=== PATIENT | male | born 1970 | race Caucasian/White ===

== ENCOUNTER 2016-06-04 20:33 | Emergency (ER) | payer MEDICAID ==
--- NOTE | 2016-06-04 20:46 | EDPHY ---
H & P Time Seen by Provider: 06/04/16 20:36 HPI/ROS: CHIEF COMPLAINT: Suspected alcohol iIntoxicationn HISTORY OF PRESENT ILLNESS: 46-year-old homeless male arrives via ambulance on an [facility] hold after he was found sleeping under a darling.. No reports of trauma. No fall. No visible signs of trauma. Admits to alcohol use.Denies suicidal or homicidal ideation . Denies self-injury REVIEW OF SYSTEMS: A ten point review of systems was performed and is negative with the exception of the items mentioned in the HPI PAST MEDICAL & SURGICAL HISTORY: Alcoholism SOCIAL HISTORY: homeless. Positive alcohol use PHYSICAL EXAM (Prior to examination, patient consented to physical exam, hands were washed and my usual and customary physical exam procedures followed) 1) GENERAL: Poorly kept, alert oriented. Appears to be in no acute distress. 2) HEAD: Normocephalic, atraumatic 3) HEENT: Pupils equal, round, reactive to light bilaterally. Sclera anicteric. no raccoon eyes. No Nunez sign 4) NECK: Full range of motion, no meningeal signs. 5) LUNGS: Clear auscultation bilaterally, no wheezes, no rhonchi, no retractions. 6) HEART: Regular rate and rhythm, no murmur, no heave, no gallop. 7) ABDOMEN: No guarding, no rebound, no focal tenderness, 8) MUSCULOSKELETAL: No peripheral edema or discoloration. 9) BACK: No CVA tenderness,. 10) SKIN: No rash, no petechiae. 11) Psychiatric: Patient is oriented X 3, there is no agitation. DIFFERENTIAL DIAGNOSIS: In no particular orderincluding but not limited to hypoglycemia, infectious process, electrolyte abnormality, head injury and intoxicants. Smoking Status: Current every day smoker Constitutional: Initial Vital Signs Temperature (C) 37.2 C 06/04/16 21:15 Heart Rate 119 H 06/04/16 21:15 Respiratory Rate 14 06/04/16 21:15 Blood Pressure 130/101 H 06/04/16 21:15 O2 Sat (%) 95 06/04/16 21:15 O2 Delivery Mode Room Air Allergies/Adverse Reactions: ciprofloxacin [From Cipro] Allergy (Verified 09/28/11 19:11) ciprofloxacin HCl [From Cipro] Allergy (Verified 09/28/11 19:11) Home Medications: Medication Instructions Recorded NO HOME MEDS 07/26/10 chlordiazePOXIDE [Librium 25 mg 25 mg PO TID #15 cap 01/17/16 (*)] MDM/Departure - MDM Medications Given: Discontinued Medications Chlordiazepoxide (Librium 25 Mg Prepack#6) 1 btl TAKEHOME EDNOW ONE Stop: 06/04/16 22:39 Last Admin: 06/04/16 22:42 Dose: 1 btl ED Course/Re-evaluation: 8:50 p.m.: Breathalyzer alcohol 335 10:30 p.m.: At this time he is observed ambulating with stable steady gait, clear speech pattern, ambulating without assistance, alert oriented person place time events. [facility] with [facility]. - Depart Disposition: Home, Routine, Self-Care Clinical Impression: Alcoholic intoxication Qualifiers: Complication of substance-induced condition: uncomplicated Qualified Code(s): F10.120 - Alcohol abuse with intoxication, uncomplicated Condition: Good Instructions: Alcohol Intoxication (ED) Referrals: [facility] Hours [Outside] - 1 day without fail
[2016-06-04 22:05] VITALS: TEMP 97.9
[2016-06-04] MEDS ORDERED: CHLORDIAZEPOXIDE 25MG PREPK#6 BTL TAKEHOME ONE (22:38)
[2016-06-04 22:43] VITALS: BP 133/74; PULSE 88; RESP 16; O2SAT 92
== END 2016-06-04 22:43 | disposition home or self-care (01) ==
LOC: EDUNIT#
DX: F10.120 Alcohol abuse with intoxication, uncomplicated (principal); F17.200 Nicotine dependence, unspecified, uncomplicated

== ENCOUNTER 2017-02-23 12:54 | Emergency (ER) | payer MEDICAID ==
[2017-02-23] MEDS ORDERED: LORazepam 2 MG/ML INJ IVP ONE (13:16)
[2017-02-23] MEDS ORDERED: NS 1,000 ML IV ONE (13:17)
[2017-02-23] MEDS ORDERED: chlordiazePOXIDE 25 MG CAP PO ONE ×2 (13:17→14:56)
[2017-02-23 13:20] VITALS: RESP 16; TEMP 98.2
--- NOTE | 2017-02-23 13:27 | EDPHY ---
H & P Stated Complaint: BIBA for sz at the [facility] today. brought to [facility] last night, found dk on street Time Seen by Provider: 02/23/17 13:24 HPI/ROS: HPI: This is a 47-year-old male who presents with Chief Complaint: BIBA for sz at the [facility] today. brought to [facility] last night, found dk on street Location: Seizure Quality: Today Duration: Last a few seconds Signs and Symptoms: No LOC, no neck pain, no fever, no nausea, no vomiting, no shortness of breath, no abdominal pain, no incontinence Timing: Sudden, resolved Severity: Moderate Context: Patient reports that he drank a 5th of vodka last night. He was picked up by [facility] in taken to the [facility]. This afternoon prior to arrival he had a few seconds seizure per staff and was brought in by ambulance to the ER for further evaluation. Patient reports that he has had withdrawal seizures in the past but has never been hospitalized for them. He is homeless. He drinks daily. Denies recreational drug use. Denies SI, HI, hallucinations, paranoia. No prior history of psychiatric diagnoses. He denies tremors, nausea, agitation at this time. Modifying Factors: None Comment: ROS: see HPI Constitutional: No fever, no chills, no weight loss Eyes: No blurred vision Respiratory: No shortness of breath, no cough Cardiovascular: No chest pain Gastrointestinal: No nausea, no vomiting, no diarrhea Genitourinary: No dysuria Extremities: No myalgias Neurologic: No weakness, no numbness Skin: No rashes Hematologic: No bruising, no bleeding MEDICAL/SURGICAL/SOCIAL HISTORY: Medical history: Generally healthy. Does not take any regular medications. Surgical history: Denies Social history: Homeless CONSTITUTIONAL: Untidy adult white male, nontoxic in appearance, no obvious distress HEENT: Atraumatic and normocephalic, PERRL, EOMI. Tympanic membranes clear. Oropharynx clear, no exudate and moist pink mucosa. Airway patent. No lymphadenopathy. No meningismus. Cardiovascular: Normal S1/S2, regular rate, regular rhythm, without murmur rub or gallop. PULMONARY/CHEST: Symmetrical and nontender. Clear to auscultation bilaterally. Good air movement. No accessory muscle usage. ABDOMEN: Soft, nondistended, nontender, no rebound, no guarding, no peritoneal signs, no masses or organomegaly. No CVAT. EXTREMITIES: 2/2 pulses, strength 5/5, no deformities, no clubbing, no cyanosis or edema. NEUROLOGICAL: no focal neuro deficits. GCS 15. No seizure activity. No lethargy awake and alert. SKIN: Warm and dry, no erythema. no rash. Good capillary refill. Source: Patient, RN/MD Exam Limitations: No limitations - Personal History Current Tetanus/Diphtheria Vaccine: No Current Tetanus Diphtheria and Acellular Pertussis (TDAP): No Tetanus Vaccine Date: 2006 - Medical/Surgical History Hx Asthma: No Hx Chronic Respiratory Disease: No Hx Diabetes: No Hx Cardiac Disease: No Hx Renal Disease: No Hx Cirrhosis: No Hx Alcoholism: Yes Hx HIV/AIDS: No Hx Splenectomy or Spleen Trauma: No Other PMH: Neuropathy, alcoholism. - Social History Smoking Status: Former smoker Constitutional: Initial Vital Signs Temperature (C) 36.8 C 02/23/17 13:17 Heart Rate 93 02/23/17 13:17 Respiratory Rate 16 02/23/17 13:17 Blood Pressure 116/64 02/23/17 13:17 O2 Sat (%) 95 02/23/17 13:17 O2 Delivery Mode Room Air Allergies/Adverse Reactions: ciprofloxacin [From Cipro] Allergy (Verified 02/23/17 13:13) ciprofloxacin HCl [From Cipro] Allergy (Verified 02/23/17 13:13) Home Medications: Medication Instructions Recorded NO HOME MEDS 07/26/10 Medical Decision Making ED Course/Re-evaluation: Labs, IV fluids, IV and oral medications given Patient is not postictal upon arrival to the ER. Question seizure activity. CIWA upon arrival equals 2 Given IV Ativan 1 mg and p.o. Librium 25 mg Patient knows that he has a drinking problem but does not want to go to the [facility] or to quit alcohol at this time. 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 Potassium 3.3, magnesium 1.5; given p.o. potassium supplementation 40 mEq and p.o. magnesium supplementation 800 mg Ethanol level 37 Patient monitor for 3 hours in the ER; discharge home. Differential Diagnosis: Altered mental status including but not limited to hypoglycemia, infectious process, electrolyte abnormality, head injury and intoxicants. - Data Points Laboratory Results: Laboratory Results 02/23/17 Unknown 02/23/17 Unknown 02/23/17 02/23/17 Unknown Unknown WBC 6.24 10^3/uL 10^3/uL (3.80-9.50) RBC 4.05 10^6/uL L 10^6/uL (4.40-6.38) Hgb 14.1 g/dL g/dL (13.7-17.5) Hct 40.8 % % (40.0-51.0) MCV 100.7 fL H fL (81.5-99.8) MCH 34.8 pg H pg (27.9-34.1) MCHC 34.6 g/dL g/dL (32.4-36.7) RDW 13.3 % % (11.5-15.2) Plt Count 118 10^3/uL L 10^3/uL (150-400) MPV 10.7 fL fL (8.7-11.7) Neut % (Auto) 43.9 % % (39.3-74.2) Lymph % (Auto) 42.1 % % (15.0-45.0) [place] % (Auto) 11.4 % % (4.5-13.0) Eos % (Auto) 0.2 % L % (0.6-7.6) Baso % (Auto) 2.1 % H % (0.3-1.7) Nucleat RBC Rel Count 0.0 % % (0.0-0.2) Absolute Neuts (auto) 2.74 10^3/uL 10^3/uL (1.70-6.50) Absolute Lymphs (auto) 2.63 10^3/uL 10^3/uL (1.00-3.00) Absolute Monos (auto) 0.71 10^3/uL 10^3/uL (0.30-0.80) Absolute Eos (auto) 0.01 10^3/uL L 10^3/uL (0.03-0.40) Absolute Basos (auto) 0.13 10^3/uL H 10^3/uL (0.02-0.10) Absolute Nucleated RBC 0.00 10^3/uL 10^3/uL (0-0.01) Immature Gran % 0.3 % % (0.0-1.1) Immature Gran # 0.02 10^3/uL 10^3/uL (0.00-0.10) Sodium 139 mEq/L mEq/L (134-144) Potassium 3.3 mEq/L L mEq/L (3.5-5.2) Chloride 99 mEq/L mEq/L (97-110) Carbon Dioxide 12 mEq/l L mEq/l (22-31) Anion Gap 28 mEq/L H mEq/L (8-16) BUN 10 mg/dL mg/dL (7-23) Creatinine 1.0 mg/dL mg/dL (0.7-1.3) Estimated GFR > 60 Glucose 115 mg/dL H mg/dL (70-100) Calcium 9.3 mg/dL mg/dL (8.5-10.4) Magnesium 1.5 mg/dL L mg/dL (1.6-2.3) Creatine Kinase 445 IU/L H IU/L (0-224) CK-MB (CK-2) Fraction 3.27 ng/mL H ng/mL (0.00-3.19) CK-MB (CK-2) % 0.7 % % (0.0-4.0) Creatine Kinase Interp NEGATIVE (NEGATIVE) Ethyl Alcohol 37 mg/dL H mg/dL (0-10) Medications Given: Discontinued Medications Chlordiazepoxide HCl (Librium) 25 mg PO EDNOW ONE Stop: 02/23/17 13:18 Last Admin: 02/23/17 13:40 Dose: 25 mg Sodium Chloride (Ns) 1,000 mls @ 0 mls/hr IV EDNOW ONE; Wide Open PRN Reason: Protocol Stop: 02/23/17 13:18 Last Admin: 02/23/17 13:21 Dose: 1,000 mls Lorazepam (Ativan Injection) 1 mg IVP EDNOW ONE Stop: 02/23/17 13:17 Last Admin: 02/23/17 13:40 Dose: 1 mg Departure - Departure Disposition: Other Psych, Not Johnny Clinical Impression: Alcohol abuse, Hypomagnesemia, Hypokalemia Condition: Good Instructions: Abuse of Alcohol (ED), Alcohol Withdrawal (ED) Additional Instructions: Please follow-up [facility] at [facility] to have repeat magnesium and potassium levels ordered. Referrals: [facility],. [Clinic] - As per Instructions [facility] 24 Hours [Outside] - As per Instructions
[2017-02-23 13:54] LABS: % IMMATURE GRANULYOCYTES 0.3 % (0.0-1.1); ABSOLUTE IMMATURE GRANULOCYTES 0.02 10^3/uL (0.00-0.10); ADD DIFF? NO; ADD MORPH? NO; ADD SCAN? NO; ATYPICAL LYMPHOCYTE FLAG 0 (0-99); FRAGMENT RBC FLAG 0 (0-99); HEMATOCRIT 40.8 % (40.0-51.0); HEMOGLOBIN 14.1 g/dL (13.7-17.5); LEFT SHIFT FLG 0 (0-99); LIPEMIA HEMOLYSIS FLAG 90 (0-99); MEAN CELL HEMOGLOBIN 34.8 pg (27.9-34.1); MEAN CELL HEMOGLOBIN CONCENTR. 34.6 g/dL (32.4-36.7); MEAN CELL VOLUME 100.7 fL (81.5-99.8); MEAN PLATELET VOLUME 10.7 fL (8.7-11.7); PLATELET CLUMPS FLAG 0 (0-99); PLATELET COUNT 118 10^3/uL (150-400); RED BLOOD CELL COUNT 4.05 10^6/uL (4.40-6.38); RED CELL DISTRIBUTION WIDTH 13.3 % (11.5-15.2)
[2017-02-23 14:03] LABS: ANION GAP 28 mEq/L (8-16); CALCIUM 9.3 mg/dL (8.5-10.4); CARBON DIOXIDE 12 mEq/l (22-31); CHLORIDE 99 mEq/L (97-110); ETHANOL SERUM 37 mg/dL (0-10); GLOMERULAR FILTRATION RATE > 60; GLUCOSE 115 mg/dL (70-100); MAGNESIUM 1.5 mg/dL (1.6-2.3); POTASSIUM 3.3 mEq/L (3.5-5.2); SODIUM 139 mEq/L (134-144)
[2017-02-23] MEDS ORDERED: MAGNESIUM OXIDE 400 MG TAB PO ONE (14:07)
[2017-02-23] MEDS ORDERED: POTASSIUM CL 20 MEQ PKT PO ONE (14:07)
[2017-02-23 14:19] LABS: CK-MB INTERPRETATION NEGATIVE (NEGATIVE)
[2017-02-23 14:23] LABS: CREATINE KINASE-MB FRACTION 3.27 ng/mL (0.00-3.19)
[2017-02-23 14:45] VITALS: BP 137/88; PULSE 87; O2SAT 96
--- NOTE | 2017-02-23 16:10 | ASDISCHSUM ---
Discharge Information Plan Status:Homeless/[facility] Medically Cleared to Leave: Discharge Date:02/23/2017 03:53 PM CM D/C Disposition:Other Psych, Not Johnny ADT D/C Disposition:Other Psych, Not Jonhny Projected Discharge Date:02/23/2017 03:53 PM Transportation at D/C:Cab Voucher Discharge Delay Reason: Follow-Up Date:02/23/2017 03:53 PM Discharge Slot: Final Diagnosis: Placement Information Patient Contact Information Contact Name:JOCY Relationship: Address: Home Phone: Work Phone: City: Alternate Phone: State/Zip Code: Email: Financial Information Financial Class: Primary Plan Desc:MEDICA[employer] HE[employer] FIRST WATCHSTANDER Primary Plan Number:[id number] Secondary Plan Desc: Secondary Plan Number: Assessment Information [facility] Progress Note CM Note CM Note Notes: Spoke with patient about alcohol abuse and homeless resources. Patient states he is not interested in quitting drinking at this time. Patient came to the ED from Withdrawal Management at [facility] and needs to return there to gather his belonging but otherwise does not want treatment. Patient states he has lived in [place] for 11 years and has been homeless this entire time. He is originally from [place]. When asked what he thinks is the biggest obstacle to ending his homelessness, patient responded "I just get sick of paying a sh*# ton of money around here for a place." Patient has not been staying at the assisted and was unaware of the new Coordinated Entry process. Patient is interested and open to going through the CE screening process and seeing if they can assist him with finding work and affordable housing. Patient states he has been seen at [facility] in the past and knows how to follow up with them. Patient provided cab voucher to [facility] to retrieve his belongings. CM available for further assistance. Date Signed: 02/23/2017 04:08 PM Electronically Signed By:Fawn Velsáquez RN LACE LACE Acuity / Level of Care Answers: No. Emergency dept visits in Answers: 1 last 6 months Score: 1 Date Signed: 02/23/2017 04:09 PM Electronically Signed By:Fawn Velásquez RN Intervention Information
== END 2017-02-23 15:53 ==
LOC: EDUNIT#
DX: E83.42 Hypomagnesemia (principal); E87.6 Hypokalemia; F10.10 Alcohol abuse, uncomplicated; E86.9 Volume depletion, unspecified; Z87.891 Personal history of nicotine dependence
CPT/HCPCS: 96374; G0480; J2060

== ENCOUNTER 2017-12-22 11:40 | Emergency (ER) | payer MEDICAID ==
[2017-12-22 12:06] LABS: PLATELET COUNT 116 10^3/uL (150-400)
--- NOTE | 2017-12-22 12:57 | EDPHY ---
HPI/HX/ROS/PE/MDM Narrative: CHIEF COMPLAINT: Seizure HISTORY OF PRESENT ILLNESS: This patient is a 47 year-old male arriving via EMS following a seizure. He states his last was 10-15 years ago. He is not medicated. These are related to alcohol withdrawal. He states his last drink was a few days ago. The seizure occurred while he was on his way to the [facility]. He fell when he began seizing. He cannot remember whether he stuck his head. He endorses some leg pain, in his calves bilaterally. He denies any headache. He denies co-ingestion including methamphetamines, cocaine, or benzodiazepines. No fever, chills, chest pain, shortness of breath, palpitations, vomiting, diarrhea, urinary complaints, headache, lightheadedness. REVIEW OF SYSTEMS: A comprehensive 10 system review of systems is otherwise negative aside from elements mentioned in the history of present illness and medical decision making. PAST MEDICAL HISTORY: Alcoholism. History of withdrawal seizures. SOCIAL HISTORY: Transient. Nonsmoker. Does not abuse illicit drugs. VITAL SIGNS: Reviewed by me GENERAL: Well-developed, well-nourished, resting comfortably in no respiratory distress. HEENT: Atraumatic. Eyes: No icterus, no injection. Mouth: mild tongue tremor. moist mucous membranes. No erythema or lesions. Neck: supple with no adenopathy. LUNGS: Clear to auscultation bilaterally, no wheezes, rhonchi or rales. CARDIAC: Regular rate and rhythm, no rubs, murmurs or gallops. ABDOMEN: Soft, nontender, nondistended, bowel sounds normal. BACK: No CVA tenderness. EXTREMITIES: No trauma. No edema. Range of motion is normal throughout. NEURO: Alert and oriented. Mild tremor in tongue and bilateral hands. SKIN: Warm and dry, no rash. PSYCHIATRIC: Normal mentation, no agitation. Portions of this note were transcribed by a biomedical manager. I personally performed a history, physical exam, medical decision making, and confirmed accuracy of information the transcribed note. ED Course: This 47 y/o male presents following an alcohol withdrawal seizure. He has a mild tremor in his tongue and bilateral hands on exam. He denies any significant trauma, no headache, he is neurologically intact. IV established. Labs including CBC, chemistries, and EtOH completed. Patient's laboratory studies are consistent with post-seizure labs. Plan to administer 1L IV NS and 1mg IV Ativan for recurrent withdrawal seizure prevention. Reassessed. Patient is feeling better following IVF and Ativan administration. Plan to discharge home in good condition. Follow up and return precautions discussed. He is comfortable with this plan. MDM: Diff dx for patients seizure considered including but not limited to alcohol withdrawl seizure, epilepsy, head trauma, intracranial processed to include bleeding or mass or tumor, medication noncompliance, drug or alcohol intoxication or withdrawl. - Data Points Laboratory Results: Laboratory Results 12/22/17 11:45 12/22/17 11:45 Medications Given: Discontinued Medications Sodium Chloride (Ns) 1,000 mls @ 0 mls/hr IV ONCE ONE; Wide Open PRN Reason: Protocol Stop: 12/22/17 13:11 Last Admin: 12/22/17 13:31 Dose: 1,000 mls Lorazepam (Ativan Injection) 1 mg IVP EDNOW ONE Stop: 12/22/17 13:18 Last Admin: 12/22/17 13:31 Dose: 1 mg General Initial Vital Signs: Initial Vital Signs Temperature (C) 36.5 C 12/22/17 11:53 Heart Rate 89 12/22/17 11:53 Respiratory Rate 16 12/22/17 11:53 Blood Pressure 132/78 H 12/22/17 11:53 O2 Sat (%) 97 12/22/17 11:53 O2 Delivery Mode Room Air Allergies/Adverse Reactions: ciprofloxacin [From Cipro] Allergy (Verified 02/23/17 13:13) ciprofloxacin HCl [From Cipro] Allergy (Verified 02/23/17 13:13) Home Medications: Medication Instructions Recorded NO HOME MEDS 07/26/10 Departure - Departure Disposition: Home, Routine, Self-Care Clinical Impression: Seizure Alcohol withdrawal Qualifiers: Complication of substance-induced condition: uncomplicated Qualified Code(s): F10.230 - Alcohol dependence with withdrawal, uncomplicated Condition: Good Instructions: Alcohol Withdrawal (ED), Recurrent Seizures in Adults (ED) Additional Instructions: 1. Follow up with your primary care provider. We have provided a referral to [facility]. 2. Stay well hydrated. 3. Return to the emergency department for recurrent seizures, fever, chest pain , shortness of breath, or other worsening of condition. Referrals: [facility],. [Clinic] - As per Instructions Report Scribed for: Shira Patel Report Scribed by: Jeanette Ball Date of Report: 12/22/17 Time of Report: 12:57
[2017-12-22] MEDS ORDERED: NS 1,000 ML IV ONE (13:10)
[2017-12-22] MEDS ORDERED: LORazepam 2 MG/ML INJ IVP ONE (13:17)
[2017-12-22 14:33] VITALS: BP 125/80
== END 2017-12-22 14:39 | disposition home or self-care (01) ==
LOC: EDUNIT#
DX: R56.9 Unspecified convulsions (principal); F10.230 Alcohol dependence with withdrawal, uncomplicated
CPT/HCPCS: 96374; G0480; J2060

== ENCOUNTER 2018-04-02 19:32 | Emergency (ER) | payer MEDICAID ==
--- NOTE | 2018-04-02 19:43 | EDPHY ---
H & P Time Seen by Provider: 04/02/18 19:43 HPI/ROS: HPI CHIEF COMPLAINT: Seizure HISTORY OF PRESENT ILLNESS: 48-year-old male, otherwise healthy denies any significant medical history, however does have a history of alcoholism typically drinks alcohol daily, his last drink was 2 days ago. He had a witnessed generalized [facility]. No trauma reported. Patient is unsure what happened. He arrives to the emergency room hemodynamically stable no acute distress, GCS 15. Denies any complaints. States he does not feel Like he is going to withdrawal. Denies headache, denies shortness of breath and denies chest pain. Past Medical History: Alcohol withdraw seizures, alcoholism Past Surgical History: No recent surgical history Social History: Denies daily use of drugs or tobacco. Drinks alcohol daily. Last drink 2 days ago. Family History: Noncontributory ROS REVIEW OF SYSTEMS: 10 Systems were reviewed and negative with the exception of the elements mentioned in the history of present illness. Exam Constitutional nontoxic appearing, triage nursing summary reviewed, vital signs reviewed, awake/alert. Eyes normal conjunctivae and sclera, EOMI, PERRLA. HENT normal inspection, atraumatic, moist mucus membranes, no epistaxis, neck supple/ no meningismus, no raccoon eyes. Respiratory clear to auscultation bilaterally, normal breath sounds, no respiratory distress, no wheezing. Cardiovascular rate normal, regular rhythm, no murmur, no edema, distal pulses normal. Gastrointestinal soft, non-tender, no rebound, no guarding, normal bowel sounds, no distension, no pulsatile mass. Genitourinary no CVA tenderness. Musculoskeletal no midline vertebral tenderness, full range of motion, no calf swelling, no tenderness of extremities, no meningismus, good pulses, neurovascularly intact. Skin pink, warm, & dry, no rash, skin atraumatic. Neurologic awake, alert and oriented x 3, AAOx3, moves all 4 extremities equally, motor intact, sensory intact, CN II-XII intact, normal cerebellar, normal vision, normal speech. Psychiatric normal mood/affect. Heme/Lymph/Immune no lymphadenopathy. Differential Diagnosis: Includes but is not limited to in a particular order alcohol withdrawal seizure, electrolyte disturbance, alcoholism, alcohol withdrawal, seizure Medical Decision Making: Plan for this patient IV establishment IV fluid bolus, Re-evaluation: 1953: Patient has no significant tremors on exam. He is noted not to be severely tachycardic. No evidence of significant withdrawal on exam. Patient has no complaints. 2154: Patient re-evaluated this time resting comfortably no acute distress. Feels much better after IV fluids and IV Ativan. There has been no seizure activity here in emergency room. Patient ambulated well throughout the emergency room. P. O. Challenge well without any difficulty. Return precautions discussed with the patient. Source: Patient, EMS - Personal History Tetanus Vaccine Date: 2006 - Medical/Surgical History Hx Asthma: No Hx Chronic Respiratory Disease: No Hx Diabetes: No Hx Cardiac Disease: No Hx Renal Disease: No Hx Cirrhosis: No Hx Alcoholism: Yes Hx HIV/AIDS: No Hx Splenectomy or Spleen Trauma: No Other PMH: Neuropathy, alcoholism. - Social History Smoking Status: Former smoker Constitutional: Initial Vital Signs Temperature (C) 36.9 C 04/02/18 19:52 Heart Rate 93 04/02/18 19:52 Respiratory Rate 18 04/02/18 19:52 Blood Pressure 146/90 H 04/02/18 19:52 O2 Sat (%) 94 04/02/18 19:52 O2 Delivery Mode Room Air Allergies/Adverse Reactions: ciprofloxacin [From Cipro] Allergy (Verified 04/02/18 19:51) ciprofloxacin HCl [From Cipro] Allergy (Verified 04/02/18 19:51) Home Medications: Medication Instructions Recorded NO HOME MEDS 07/26/10 Medical Decision Making - Data Points Laboratory Results: Laboratory Results 04/02/18 19:27 04/02/18 19:27 04/02/18 04/02/18 19:27 19:27 WBC 4.43 10^3/uL 10^3/uL (3.80-9.50) RBC 3.84 10^6/uL L 10^6/uL (4.40-6.38) Hgb 13.0 g/dL L g/dL (13.7-17.5) Hct 38.0 % L % (40.0-51.0) MCV 99.0 fL fL (81.5-99.8) MCH 33.9 pg pg (27.9-34.1) MCHC 34.2 g/dL g/dL (32.4-36.7) RDW 12.7 % % (11.5-15.2) Plt Count 60 10^3/uL L 10^3/uL (150-400) MPV 11.1 fL fL (8.7-11.7) Neut % (Auto) 66.1 % % (39.3-74.2) Lymph % (Auto) 19.2 % % (15.0-45.0) [place] % (Auto) 12.6 % % (4.5-13.0) Eos % (Auto) 0.2 % L % (0.6-7.6) Baso % (Auto) 1.4 % % (0.3-1.7) Nucleat RBC Rel Count 0.0 % % (0.0-0.2) Absolute Neuts (auto) 2.93 10^3/uL 10^3/uL (1.70-6.50) Absolute Lymphs (auto) 0.85 10^3/uL L 10^3/uL (1.00-3.00) Absolute Monos (auto) 0.56 10^3/uL 10^3/uL (0.30-0.80) Absolute Eos (auto) 0.01 10^3/uL L 10^3/uL (0.03-0.40) Absolute Basos (auto) 0.06 10^3/uL 10^3/uL (0.02-0.10) Absolute Nucleated RBC 0.00 10^3/uL 10^3/uL (0-0.01) Immature Gran % 0.5 % % (0.0-1.1) Immature Gran # 0.02 10^3/uL 10^3/uL (0.00-0.10) Sodium 133 mEq/L L mEq/L (135-145) Potassium 3.7 mEq/L mEq/L (3.5-5.2) Chloride 97 mEq/L mEq/L (97-110) Carbon Dioxide 22 mEq/l mEq/l (22-31) Anion Gap 14 mEq/L mEq/L (6-14) BUN 13 mg/dL mg/dL (7-23) Creatinine 0.9 mg/dL mg/dL (0.7-1.3) Estimated GFR > 60 Glucose 127 mg/dL H mg/dL (70-100) Calcium 9.1 mg/dL mg/dL (8.5-10.4) Medications Given: Discontinued Medications Sodium Chloride (Ns) 1,000 mls @ 0 mls/hr IV EDNOW ONE; Wide Open PRN Reason: Protocol Stop: 04/02/18 19:47 Last Admin: 04/02/18 19:54 Dose: 1,000 mls Lorazepam (Ativan Injection) 1 mg IVP EDNOW ONE Stop: 04/02/18 19:50 Last Admin: 04/02/18 19:58 Dose: 1 mg Departure - Departure Disposition: Home, Routine, Self-Care Clinical Impression: Seizure Condition: Good Instructions: Alcohol Withdrawal (ED) Referrals: NONE *PRIMARY CARE P,. [Primary Care Provider] - As per Instructions
[2018-04-02] MEDS ORDERED: NS 1,000 ML IV ONE (19:46)
[2018-04-02] MEDS ORDERED: LORazepam 2 MG/ML INJ IVP ONE (19:49)
[2018-04-02 20:05] LABS: PLATELET COUNT 60 10^3/uL (150-400)
[2018-04-02 22:36] VITALS: BP 153/96
== END 2018-04-02 23:15 | disposition home or self-care (01) ==
LOC: EDBD → EDUNIT#
DX: R56.9 Unspecified convulsions (principal); F10.239 Alcohol dependence with withdrawal, unspecified; E86.9 Volume depletion, unspecified; Z87.891 Personal history of nicotine dependence
CPT/HCPCS: 96374; J2060